=== PATIENT | female | born 1965 | race Two or more races ===

== ENCOUNTER 2016-06-27 20:15 | Emergency (ER) | payer MEDICAID ==
[~2016-06-27] VITALS: Ht 165.1 cm; Wt 81.2 kg
[2016-06-27] MEDS ORDERED: Famotidine 20 MG/ 2ML VIAL IVP ONE (20:45)
[2016-06-27 21:10] LABS: BASOPHILS % (AUTO) 2.1 % (0.0-2.0); EOSINOPHILS % (AUTO) 2.4 % (0.0-3.0); LYMPHOCYTES % (AUTO) 31.6 % (20.0-45.0); MEAN CORPUSCULAR HEMOGLOBIN 31.7 PG (27.0-31.0); MEAN CORPUSCULAR HGB CONC 34.2 G/DL (32.0-36.0); MEAN CORPUSCULAR VOLUME 92 FL (80-99); MEAN PLATELET VOLUME 8.1 FL (6.5-10.1); MONOCYTES % (AUTO) 13.2 % (1.0-10.0); NEUTROPHILS % (AUTO) 50.7 % (45.0-75.0); PLATELET COUNT 288 K/UL (150-450); RED BLOOD COUNT 4.22 M/UL (4.20-5.40); RED CELL DISTRIBUTION WIDTH 12.5 % (11.6-14.8); WHITE BLOOD COUNT 6.6 K/UL (4.8-10.8)
[2016-06-27 21:11] LABS: APPEARANCE,URINE CLEAR; KETONES,URINE NEGATIVE (NEGATIVE); LEUKOCYTE ESTERASE ,URINE 1+ (NEGATIVE); NITRITE,URINE NEGATIVE (NEGATIVE); PH,URINE 5 (4.5-8.0); PROTEIN,URINE 1+ (NEGATIVE); UROBILINOGEN,URINE 1 MG/DL (0.0-1.0)
[2016-06-27 21:20] LABS: BACTERIA,URINE OCCASIONAL /HPF; RBC,URINE 0-2 /HPF (0 - 2); SQUAMOUS EPITHELIAL CELL,UR OCCASIONAL /LPF (NONE/OCC); WBC,URINE 0-2 /HPF (0 - 2)
[2016-06-27 21:21] VITALS: BP 136/85
[2016-06-27 21:21] LABS: CALCIUM OXALATE CRYSTALS,UR MODERATE /LPF
[2016-06-27 21:29] LABS: ALANINE AMINOTRANSFERASE 26 U/L (3-33); ALBUMIN/GLOBULIN RATIO 1.1 (1.0-2.7); ANION GAP 15 (5-15); ASPARTATE AMINO TRANSFERASE 32 U/L (5-40); CALCIUM 8.9 mg/dL (8.6-10.2); CARBON DIOXIDE 23 mEQ/L (20-30); CHLORIDE 103 mEQ/L (98-107); CREATININE 0.6 mg/dL (0.5-0.9); GLOMERULAR FILTRATION RATE > 60 mL/min (>60); HEMOLYSIS 3; LIPASE 21 U/L (< 60); POTASSIUM 3.4 mEQ/L (3.4-4.9); SODIUM 141 mEQ/L (135-145); TOTAL PROTEIN 7.2 g/dL (6.6-8.7)
[2016-06-27] MEDS ORDERED: ZOFRAN4 M3 ORAL (21:36)
[2016-06-27 22:05] VITALS: BP 130/78
[2016-06-27 22:15] VITALS: BP 130/78
--- NOTE | 2016-06-27 22:24 | Emergency Room Report ---
History of Present Illness General Chief Complaint: Abdominal Pain Source: Patient Present Illness HPI The pt is a 51 yo F who denies any medical Hx presenting for abdominal pain, N, V, and diarrhea which began 2 days prior. The pt states she ate something questionable at work 3 days prior but is unsure what it was. The pt describes abd pain as 9/10 upper mid dull ache and is worse with vomiting. The pt has had decreased appetite since the symptoms began. The pt denies F, chills, rash, MARTINEZ, dizziness, blurred vision, fatigue, melena, hematochezia, hematemesis, SOB, CP. Pt denies recent travel. Allergies: Coded Allergies: No Known Allergies (Unverified , 06/27/16) Patient History Past Medical History: see triage record Past Surgical History: none Pertinent Family History: none Last Menstrual Period: 06/21/16 Now: Yes : 2 Para: 2 Reviewed Nursing Documentation: PMH: Agreed, PSxH: Agreed Nursing Documentation-PMH Past Medical History: No Stated History Review of Systems All Other Systems: negative except mentioned in HPI Physical Exam Vital Signs Date Time Temp Pulse Resp B/P Pulse Ox O2 Delivery O2 Flow Rate FiO2 06/27/16 20:22 98.1 92 18 134/92 98 Room Air Sp02 EP Interpretation: reviewed, normal General Appearance: no apparent distress, alert, GCS 15, non-toxic Head: normocephalic, atraumatic Eyes: bilateral eye PERRL, bilateral eye normal inspection ENT: hearing grossly normal, normal pharynx, no angioedema, normal voice Neck: full range of motion, supple/symm/no masses Respiratory: chest non-tender, lungs clear, normal breath sounds, speaking full sentences Cardiovascular #1: regular rate, rhythm, no edema Cardiovascular #2: 2+ carotid (R), 2+ carotid (L), 2+ radial (R), 2+ radial (L) , 2+ dorsalis pedis (R), 2+ dorsalis pedis (L) Gastrointestinal: soft, non-distended, no guarding, no rebound, tenderness - epigastric, other - hyperactive BS Rectal: deferred Genitourinary: normal inspection, no CVA tenderness Musculoskeletal: back normal, gait/station normal, normal range of motion, non- tender Neurologic: alert, oriented x3, responsive, motor strength/tone normal, sensory intact, speech normal Psychiatric: judgement/insight normal, memory normal, mood/affect normal, no suicidal/homicidal ideation Reflexes: 3+ bicep (R), 3+ bicep (L), 3+ tricep (R), 3+ tricep (L), 3+ knee (R) , 3+ knee (L) Skin: normal color, no rash, warm/dry, well hydrated Lymphatic: no adenopathy Medical Decision Making PA Attestation Dr. John is my supervising physician. Patient management was discussed with my supervising physician Diagnostic Impression: Primary Impression: Gastroenteritis ER Course The pt is a 51 yo F who denies any medical Hx presenting for abdominal pain, N, V, and diarrhea which began 2 days prior. Differential diagnoses considered include but not limited to gastritis, pancreatitis, appendicitis, , UTI PE: Vitals WNL. NAD. Abd: soft. TTP over epigastric region only. No guarding. Hyperactive BS. No distention. Otherwise exam unremarkable. cbc shows no leukocytosis. CMP WNL. UA shows no infection. The pt is given IV fluids, Zofran, and Pepcid and is feeling better. Pt will be DC home with prescription for zofran. ER precautions given Laboratory Tests Test 06/27/16 20:45 White Blood Count 6.6 K/UL (4.8-10.8) Red Blood Count 4.22 M/UL (4.20-5.40) Hemoglobin 13.3 G/DL (12.0-16.0) Hematocrit 39.0 % (37.0-47.0) Mean Corpuscular Volume 92 FL (80-99) Mean Corpuscular Hemoglobin 31.7 PG (27.0-31.0) H Mean Corpuscular Hemoglobin Concent 34.2 G/DL (32.0-36.0) Red Cell Distribution Width 12.5 % (11.6-14.8) Platelet Count 288 K/UL (150-450) Mean Platelet Volume 8.1 FL (6.5-10.1) Neutrophils (%) (Auto) 50.7 % (45.0-75.0) Lymphocytes (%) (Auto) 31.6 % (20.0-45.0) Monocytes (%) (Auto) 13.2 % (1.0-10.0) H Eosinophils (%) (Auto) 2.4 % (0.0-3.0) Basophils (%) (Auto) 2.1 % (0.0-2.0) H Urine Color Yellow Urine Appearance Clear Urine pH 5 (4.5-8.0) Urine Specific [place] 1.030 (1.005-1.035) Urine Protein 1+ (NEGATIVE) H Urine Glucose (UA) Negative (NEGATIVE) Urine Ketones Negative (NEGATIVE) Urine Occult Blood 2+ (NEGATIVE) H Urine Nitrite Negative (NEGATIVE) Urine Bilirubin Negative (NEGATIVE) Urine Urobilinogen 1 MG/DL (0.0-1.0) H Urine Leukocyte Esterase 1+ (NEGATIVE) H Urine RBC 0-2 /HPF (0 - 2) Urine WBC 0-2 /HPF (0 - 2) Urine Squamous Epithelial Cells Occasional /LPF Urine Calcium Oxalate Crystals Moderate /LPF (NONE) Urine Bacteria Occasional /HPF (NONE) Urine HCG, Qualitative Negative Sodium Level 141 mEQ/L (135-145) Potassium Level 3.4 mEQ/L (3.4-4.9) Chloride Level 103 mEQ/L (98-107) Carbon Dioxide Level 23 mEQ/L (20-30) Anion Gap 15 (5-15) Blood Urea Nitrogen 12 mg/dL (7-23) Creatinine 0.6 mg/dL (0.5-0.9) Estimate Glomerular Filtration Rate > 60 mL/min (>60) Glucose Level 112 mg/dL (74-106) H Calcium Level 8.9 mg/dL (8.6-10.2) Total Bilirubin 0.3 mg/dL (0.0-1.2) Aspartate Amino Transferase (AST) 32 U/L (5-40) Alanine Aminotransferase (ALT) 26 U/L (3-33) Alkaline Phosphatase 79 U/L (35-104) Total Protein 7.2 g/dL (6.6-8.7) Albumin 3.8 g/dL (3.5-5.2) Globulin 3.4 g/dL Albumin/Globulin Ratio 1.1 (1.0-2.7) Lipase 21 U/L (< 60) Lab Results Impression cbc shows no leukocytosis. CMP WNL. UA shows no infection. Last Vital Signs Date Time Temp Pulse Resp B/P Pulse Ox O2 Delivery O2 Flow Rate FiO2 06/27/16 22:15 97.9 74 16 130/78 100 Room Air Status: improved Disposition: HOME, SELF-CARE Condition: Improved Scripts Ondansetron* (ZOFRAN*) 4 Mg Tablet 4 MG ORAL Q6H Y for Nausea & Vomiting, #15 TAB Prov: CHRISTELLE RODRIGUEZ 06/27/16 Patient Instructions: Diarrhea, Adult, Food Choices to Help Relieve Diarrhea, Adult Additional Instructions: I discussed my findings with the patient. All questions and concerns have been answered. Treatment and medication compliance have been addressed. I advised the patient that they need to follow up with PMD in 3-5 days. Return to ED if symptoms worsen, new symptoms arise, or if needed for any reason. Patient verbalized understanding of discharge instructions. CHRISTELLE RODRIGUEZ Jun 27, 2016 22:24
== END 2016-06-27 22:15 | disposition home or self-care (01) ==
LOC: EMR 21:07
DX: K52.9 Noninfective gastroenteritis and colitis, unspecified (principal)
CPT/HCPCS: 36415; 80053; 81003; 81025; 83690; 85025; 96361; 96374; 96375; 99284; J2405; S0028

== ENCOUNTER 2017-04-28 09:47 | Inpatient (IN) | payer MEDICAID ==
[~2017-04-28] VITALS: Ht 162.6 cm; Wt 77.1 kg
[~2017-04-28 09:47] MED LIST: ZOFRAN4 M3 ORAL
[2017-04-28] MEDS ORDERED: Morphine Sulfate 4mg/ml Inj IVP ONE (10:00)
[2017-04-28 10:05] VITALS: BP 163/87
--- NOTE | 2017-04-28 10:06 | Emergency Room Report ---
History of Present Illness General Chief Complaint: abdominal pain Source: Patient Present Illness HPI Patient is a 52-year-old female who presented after increased abdominal pain. Patient gradual onset of symptoms. This reports an increase pain to the left side of her abdomen. The pain was associated with nausea and vomiting. She denied any hematemesis. The patient reported having pain worse with ambulation. She denies any prior medical history. She had prior history of appendectomy. She denies any fever. The patient vomited multiple times. She denies diarrhea or bloody stool. Allergies: Coded Allergies: No Known Allergies (Unverified , 06/27/16) Patient History Past Medical History: see triage record Reviewed Nursing Documentation: PMH: Agreed, PSxH: Agreed Review of Systems All Other Systems: negative except mentioned in HPI Physical Exam Sp02 EP Interpretation: reviewed, normal General Appearance: normal inspection, no apparent distress, alert, GCS 15, mild distress, obese Head: atraumatic ENT: normal ENT inspection, hearing grossly normal, normal voice Neck: normal inspection, full range of motion, supple, no bony tend Respiratory: normal inspection, lungs clear, normal breath sounds, no respiratory distress, no retraction, no wheezing Cardiovascular #1: regular rate, rhythm, no edema Gastrointestinal: normal inspection, normal bowel sounds, soft, no guarding, no hernia, tenderness - left lower quadrant Genitourinary: no CVA tenderness Musculoskeletal: normal inspection, back normal, normal range of motion Neurologic: normal inspection, alert, oriented x3, responsive, traffic rate computer III-XII nml as tested, speech normal Psychiatric: normal inspection, judgement/insight normal, mood/affect normal Skin: normal inspection, normal color, no rash Medical Decision Making Diagnostic Impression: Primary Impression: Ureteral calculus, left Additional Impressions: Hydronephrosis Urinary tract infection ER Course Patient presented for abdominal pain. Differential diagnoses included ischemic bowel, appendicitis, perforated viscus, ovarian torsion,abdominal aortic aneurysm, inferior myocardial infarction, viral gastroenteritis. Because of complexity of patient's case laboratory testing and imaging studies were ordered.Patient was given IV antibiotics and she was discussed with Dr. Ewa Monsalve for urology consult. Dr. Jang was contacted for inpatient management due to complexity of medical condition and capitated physician. Labs Test 04/28/17 10:25 White Blood Count 15.8 K/UL (4.8-10.8) Red Blood Count 4.35 M/UL (4.20-5.40) Hemoglobin 12.8 G/DL (12.0-16.0) Hematocrit 41.8 % (37.0-47.0) Mean Corpuscular Volume 96 FL (80-99) Mean Corpuscular Hemoglobin 29.5 PG (27.0-31.0) Mean Corpuscular Hemoglobin Concent 30.7 G/DL (32.0-36.0) Red Cell Distribution Width 12.9 % (11.6-14.8) Platelet Count 293 K/UL (150-450) Mean Platelet Volume 7.7 FL (6.5-10.1) Neutrophils (%) (Auto) % (45.0-75.0) Lymphocytes (%) (Auto) % (20.0-45.0) Monocytes (%) (Auto) % (1.0-10.0) Eosinophils (%) (Auto) % (0.0-3.0) Basophils (%) (Auto) % (0.0-2.0) Differential Total Cells Counted 100 Neutrophils % (Manual) 87 % (45-75) Lymphocytes % (Manual) 5 % (20-45) Monocytes % (Manual) 7 % (1-10) Eosinophils % (Manual) 1 % (0-3) Basophils % (Manual) 0 % (0-2) Band Neutrophils 0 % (0-8) Platelet Estimate Adequate Platelet Morphology Normal Red Blood Cell Morphology Normal Prothrombin Time 10.2 SEC (9.30-11.50) Prothromb Time International Ratio 1.0 (0.9-1.1) Activated Partial Thromboplast Time 23 SEC (23-33) Urine Color Pale yellow Urine Appearance Clear Urine pH 5 (4.5-8.0) Urine Specific [place] 1.020 (1.005-1.035) Urine Protein 1+ (NEGATIVE) Urine Glucose (UA) 2+ (NEGATIVE) Urine Ketones 4+ (NEGATIVE) Urine Occult Blood 3+ (NEGATIVE) Urine Nitrite Negative (NEGATIVE) Urine Bilirubin Negative (NEGATIVE) Urine Urobilinogen Normal MG/DL (0.0-1.0) Urine Leukocyte Esterase Negative (NEGATIVE) Urine RBC 5-10 /HPF (0 - 2) Urine WBC 0-2 /HPF (0 - 2) Urine Squamous Epithelial Cells Moderate /LPF (NONE/OCC) Urine Bacteria Few /HPF (NONE) Sodium Level 140 MMOL/L (136-145) Potassium Level 3.7 MMOL/L (3.5-5.1) Chloride Level 103 MMOL/L (98-107) Carbon Dioxide Level 19 MMOL/L (21-32) Anion Gap 18 mmol/L (5-15) Blood Urea Nitrogen 11 mg/dL (7-18) Creatinine 1.0 MG/DL (0.55-1.30) Estimat Glomerular Filtration Rate 58.7 mL/min (>60) Glucose Level 178 MG/DL (74-106) Calcium Level 9.5 MG/DL (8.5-10.1) Total Bilirubin 0.5 MG/DL (0.2-1.0) Aspartate Amino Transf (AST/SGOT) 28 U/L (15-37) Alanine Aminotransferase (ALT/SGPT) 28 U/L (12-78) Alkaline Phosphatase 80 U/L (46-116) Troponin I < 0.017 ng/mL (0.000-0.056) Total Protein 7.8 G/DL (6.4-8.2) Albumin 3.5 G/DL (3.4-5.0) Globulin 4.3 g/dL Albumin/Globulin Ratio 0.8 (1.0-2.7) Lipase 79 U/L (73-393) Status: unchanged Disposition: ADMITTED INPATIENT Condition: Dudley Puentes Apr 28, 2017 10:06
[2017-04-28] MEDS ORDERED: NKM (10:10)
[2017-04-28] MEDS ORDERED: Tubing IV Cassette IV ONE (10:23)
[2017-04-28 11:14] LABS: MEAN CORPUSCULAR HEMOGLOBIN 29.5 PG (27.0-31.0); MEAN CORPUSCULAR HGB CONC 30.7 G/DL (32.0-36.0); MEAN CORPUSCULAR VOLUME 96 FL (80-99); MEAN PLATELET VOLUME 7.7 FL (6.5-10.1); PLATELET COUNT 293 K/UL (150-450); RED BLOOD COUNT 4.35 M/UL (4.20-5.40); RED CELL DISTRIBUTION WIDTH 12.9 % (11.6-14.8); WHITE BLOOD COUNT 15.8 K/UL (4.8-10.8)
[2017-04-28 11:15] LABS: APPEARANCE,URINE CLEAR; KETONES,URINE 4+ (NEGATIVE); LEUKOCYTE ESTERASE ,URINE NEGATIVE (NEGATIVE); NITRITE,URINE NEGATIVE (NEGATIVE); PH,URINE 5 (4.5-8.0); PROTEIN,URINE 1+ (NEGATIVE); UROBILINOGEN,URINE NORMAL MG/DL (0.0-1.0)
[2017-04-28 11:28] LABS: ANION GAP 18 mmol/L (5-15); CALCIUM 9.5 MG/DL (8.5-10.1); CARBON DIOXIDE 19 MMOL/L (21-32); CHLORIDE 103 MMOL/L (98-107); GLOMERULAR FILTRATION RATE 58.7 mL/min (>60); POTASSIUM 3.7 MMOL/L (3.5-5.1); SODIUM 140 MMOL/L (136-145)
[2017-04-28 11:29] LABS: BACTERIA,URINE FEW /HPF; PROTHROMBIN TIME 10.2 SEC (9.30-11.50); SQUAMOUS EPITHELIAL CELL,UR MODERATE /LPF (NONE/OCC); WBC,URINE 0-2 /HPF (0 - 2)
[2017-04-28] MEDS ORDERED: Morphine Sulfate 2mg/ml Inj IVP ONE (11:30)
[2017-04-28 11:33] LABS: ALANINE AMINOTRANSFERASE 28 U/L (12-78); ALBUMIN/GLOBULIN RATIO 0.8 (1.0-2.7); ASPARTATE AMINO TRANSFERASE 28 U/L (15-37); LIPASE 79 U/L (73-393); TOTAL PROTEIN 7.8 G/DL (6.4-8.2)
[2017-04-28 11:53] LABS: BAND NEUTROPHILS % (MANUAL) 0 % (0-8); BASOPHILS % (MANUAL) 0 % (0-2); EOSINOPHILS % (MANUAL) 1 % (0-3); LYMPHOCYTES % (MANUAL) 5 % (20-45); NEUTROPHILS % (MANUAL) 87 % (45-75); PLATELET ESTIMATE ADEQUATE; PLATELET MORPHOLOGY NORMAL; TOTAL CELLS COUNTED 100
--- NOTE | 2017-04-28 12:03 | Diagnostic Imaging Report ---
Indication: Abdominal pain Technique: Continuous helical transaxial imaging of the abdomen and pelvis was obtained from the lung bases to the pubic symphysis during intravenous contrast administration. Coronal 2-D reformats were also obtained. Study obtained in a Siemens sensation [address] Automatic Exposure Control was utilized. Total Dose length Product (DLP): [address] Dose Index Volume (CTDIvol): 0.15, 19.51 mGy Comparison: None Findings: Minimal basilar atelectasis demonstrated. There is moderate left hydronephrosis/hydroureter with perinephric and periureteral stranding secondary to 8 mm stone in the left UVJ. Delayed enhancement of the left kidney noted due to the obstruction. No additional stones are identified. No abnormalities of the liver, gallbladder, pancreas or spleen identified. Probable appendectomy noted. No free fluid identified. Uterus noted. Urinary bladder is unremarkable. Impression: Moderate left hydronephrosis and obstruction secondary to a 8 [address] The [address] scanner at [facility] is accredited by the [employer] and the scans are performed using dose optimization techniques as appropriate to a performed exam including Automatic Exposure control.
[2017-04-28] MEDS ORDERED: Piperacillin/Tazobactam 3.375 GM in NS 55 ML IVPB ONE (12:45)
[2017-04-28] MEDS ORDERED: Zosyn 3.375gm inj ONE (13:03)
[2017-04-28 14:00] VITALS: BP 130/79
[2017-04-28 15:26] VITALS: BP 116/70
[2017-04-28 16:30] VITALS: BP 127/68
[2017-04-28] MEDS ORDERED: Morphine Sulfate 2mg/ml Inj IV PRN (17:15)
[2017-04-28] MEDS ORDERED: Nitroglycerin Subl 0.4mg tab SL PRN (17:15)
[2017-04-28] MEDS ORDERED: Morphine Sulfate 2mg/ml Inj IVP PRN (17:15)
[2017-04-28] MEDS ORDERED: Mylanta II UD 30ml ORAL PRN (17:15)
[2017-04-28] MEDS ORDERED: Miralax 17gm pkt ORAL PRN (17:15)
[2017-04-28] MEDS: D5 1/2NS 1,000 ML IV SCH (18:37)
[2017-04-28 20:00] VITALS: BP 118/68
[2017-04-28] MEDS ORDERED: cefTRIAXone 1 GM in D5W 55 ML IVPB SCH (20:00)
[2017-04-28] MEDS: Heparin 5000 units/ml inj SUBQ SCH (20:51)
[2017-04-28 22:57] LABS: APPEARANCE,URINE CLEAR; KETONES,URINE 1+ (NEGATIVE); LEUKOCYTE ESTERASE ,URINE NEGATIVE (NEGATIVE); NITRITE,URINE NEGATIVE (NEGATIVE); PH,URINE 6 (4.5-8.0); PROTEIN,URINE NEGATIVE (NEGATIVE); UROBILINOGEN,URINE NORMAL MG/DL (0.0-1.0)
[2017-04-28 23:06] LABS: BACTERIA,URINE OCCASIONAL /HPF; SQUAMOUS EPITHELIAL CELL,UR OCCASIONAL /LPF (NONE/OCC); WBC,URINE 0-2 /HPF (0 - 2)
[2017-04-29] VITALS (13 sets, daily range): BP systolic 114–151; BP diastolic 64–98
[2017-04-29 04:57] LABS: EOSINOPHILS % (AUTO) 1.4 % (0.0-3.0); LYMPHOCYTES % (AUTO) 22.6 % (20.0-45.0); MEAN CORPUSCULAR HEMOGLOBIN 31.7 PG (27.0-31.0); MEAN CORPUSCULAR HGB CONC 33.4 G/DL (32.0-36.0); MEAN CORPUSCULAR VOLUME 95 FL (80-99); MEAN PLATELET VOLUME 8.3 FL (6.5-10.1); MONOCYTES % (AUTO) 8.2 % (1.0-10.0); NEUTROPHILS % (AUTO) 66.7 % (45.0-75.0); PLATELET COUNT 289 K/UL (150-450); RED BLOOD COUNT 3.64 M/UL (4.20-5.40); WHITE BLOOD COUNT 11.6 K/UL (4.8-10.8)
[2017-04-29 05:40] LABS: ALANINE AMINOTRANSFERASE 21 U/L (12-78); ALBUMIN/GLOBULIN RATIO 0.8 (1.0-2.7); AMYLASE 68 U/L (25-115); ANION GAP 8 mmol/L (5-15); ASPARTATE AMINO TRANSFERASE 20 U/L (15-37); CALCIUM 8.9 MG/DL (8.5-10.1); CARBON DIOXIDE 26 MMOL/L (21-32); CHLORIDE 106 MMOL/L (98-107); CREATININE 0.8 MG/DL (0.55-1.30); GLOMERULAR FILTRATION RATE > 60 mL/min (>60); LIPASE 72 U/L (73-393); POTASSIUM 3.7 MMOL/L (3.5-5.1); SODIUM 140 MMOL/L (136-145); TOTAL PROTEIN 6.5 G/DL (6.4-8.2)
[2017-04-29] MEDS: D5 1/2NS 1,000 ML IV SCH ×2 (06:59→17:22)
[2017-04-29] MEDS: Heparin 5000 units/ml inj SUBQ SCH ×2 (09:00→20:10)
--- NOTE | 2017-04-29 09:47 | History and Physical ---
History of Present Illness General Date patient seen: Apr 28, 2017 Reason for Hospitalization: Abdominal Pain Present Illness HPI 52-year-old female who presented after increased abdominal pain with gradual onset of symptoms. This reports an increase pain to the left side of her abdomen with nausea and vomiting. She was diagnosed to have 8 mm ureteral stone with hydronephrosis. Admitted for possible ureteral stent placement. Allergies: Coded Allergies: No Known Allergies (Unverified , 06/27/16) Medication History Discontinued Medications Ondansetron* (Zofran*), 4 MG ORAL Q6H PRN for Nausea & Vomiting Discontinued Reason: Pt stopped taking med Patient History Healthcare decision maker Resuscitation status Full Code Advanced Directive on File Past Medical/Surgical History Past Medical/Surgical History: (1) Hydronephrosis (2) Gastroenteritis Review of Systems Constitutional: Reports: malaise Gastrointestinal: Reports: abdominal pain All Other Systems: negative except mentioned in HPI Physical Exam General Appearance: WD/WN Lines, tubes and drains: peripheral HEENT: normocephalic, atraumatic Neck: non-tender, normal inspection Respiratory/Chest: chest wall non-tender, lungs clear Cardiovascular/Chest: normal rate, regularly irregular Abdomen: normal bowel sounds, soft Genitourinary/Rectal: normal genital exam Last 24 Hour Vital Signs Date Time Temp Pulse Resp B/P (MAP) Pulse Ox O2 Delivery O2 Flow Rate FiO2 04/29/17 08:00 97.5 74 21 138/98 99 Room Air 04/29/17 08:00 74 04/29/17 04:00 97.3 82 18 130/83 99 Room Air 04/29/17 04:00 76 04/29/17 00:00 97.2 83 20 116/72 99 Room Air 04/29/17 00:00 88 04/28/17 20:00 87 04/28/17 20:00 97.2 99 18 118/68 97 Room Air 04/28/17 16:30 98.1 81 20 127/68 98 Room Air 04/28/17 16:05 97 20 116/70 100 Room Air 04/28/17 15:26 97 20 116/70 100 Room Air 04/28/17 14:00 75 17 130/79 100 Room Air 04/28/17 12:00 98.1 04/28/17 11:00 98.1 04/28/17 11:00 98.1 04/28/17 10:05 77 20 163/87 95 Room Air 04/28/17 10:05 77 20 163/87 95 Room Air Laboratory Tests Test 04/28/17 10:25 04/28/17 21:45 04/29/17 04:10 White Blood Count 15.8 K/UL (4.8-10.8) H 11.6 K/UL (4.8-10.8) H Red Blood Count 4.35 M/UL (4.20-5.40) 3.64 M/UL (4.20-5.40) L Hemoglobin 12.8 G/DL (12.0-16.0) 11.6 G/DL (12.0-16.0) L Hematocrit 41.8 % (37.0-47.0) 34.6 % (37.0-47.0) L Mean Corpuscular Volume 96 FL (80-99) 95 FL (80-99) Mean Corpuscular Hemoglobin 29.5 PG (27.0-31.0) 31.7 PG (27.0-31.0) H Mean Corpuscular Hemoglobin Concent 30.7 G/DL (32.0-36.0) L 33.4 G/DL (32.0-36.0) Red Cell Distribution Width 12.9 % (11.6-14.8) 13.0 % (11.6-14.8) Platelet Count 293 K/UL (150-450) 289 K/UL (150-450) Mean Platelet Volume 7.7 FL (6.5-10.1) 8.3 FL (6.5-10.1) Neutrophils (%) (Auto) % (45.0-75.0) 66.7 % (45.0-75.0) Lymphocytes (%) (Auto) % (20.0-45.0) 22.6 % (20.0-45.0) Monocytes (%) (Auto) % (1.0-10.0) 8.2 % (1.0-10.0) Eosinophils (%) (Auto) % (0.0-3.0) 1.4 % (0.0-3.0) Basophils (%) (Auto) % (0.0-2.0) 1.0 % (0.0-2.0) Differential Total Cells Counted 100 Neutrophils % (Manual) 87 % (45-75) H Lymphocytes % (Manual) 5 % (20-45) L Monocytes % (Manual) 7 % (1-10) Eosinophils % (Manual) 1 % (0-3) Basophils % (Manual) 0 % (0-2) Band Neutrophils 0 % (0-8) Platelet Estimate Adequate Platelet Morphology Normal Red Blood Cell Morphology Normal Prothrombin Time 10.2 SEC (9.30-11.50) Prothromb Time International Ratio 1.0 (0.9-1.1) Activated Partial Thromboplast Time 23 SEC (23-33) 27 SEC (23-33) Urine Color Pale yellow Pale yellow Urine Appearance Clear Clear Urine pH 5 (4.5-8.0) 6 (4.5-8.0) Urine Specific [place] 1.020 (1.005-1.035) 1.010 (1.005-1.035) Urine Protein 1+ (NEGATIVE) H Negative (NEGATIVE) Urine Glucose (UA) 2+ (NEGATIVE) H Negative (NEGATIVE) Urine Ketones 4+ (NEGATIVE) H 1+ (NEGATIVE) H Urine Occult Blood 3+ (NEGATIVE) H 2+ (NEGATIVE) H Urine Nitrite Negative (NEGATIVE) Negative (NEGATIVE) Urine Bilirubin Negative (NEGATIVE) Negative (NEGATIVE) Urine Urobilinogen Normal MG/DL (0.0-1.0) Normal MG/DL (0.0-1.0) Urine Leukocyte Esterase Negative (NEGATIVE) Negative (NEGATIVE) Urine RBC 5-10 /HPF (0 - 2) H 2-4 /HPF (0 - 2) H Urine WBC 0-2 /HPF (0 - 2) 0-2 /HPF (0 - 2) Urine Squamous Epithelial Cells Moderate /LPF (NONE/OCC) H Occasional /LPF Urine Bacteria Few /HPF (NONE) Occasional /HPF (NONE) Sodium Level 140 MMOL/L (136-145) 140 MMOL/L (136-145) Potassium Level 3.7 MMOL/L (3.5-5.1) 3.7 MMOL/L (3.5-5.1) Chloride Level 103 MMOL/L (98-107) 106 MMOL/L (98-107) Carbon Dioxide Level 19 MMOL/L (21-32) L 26 MMOL/L (21-32) Anion Gap 18 mmol/L (5-15) H 8 mmol/L (5-15) Blood Urea Nitrogen 11 mg/dL (7-18) 8 mg/dL (7-18) Creatinine 1.0 MG/DL (0.55-1.30) 0.8 MG/DL (0.55-1.30) Estimat Glomerular Filtration Rate 58.7 mL/min (>60) > 60 mL/min (>60) Glucose Level 178 MG/DL (74-106) H 134 MG/DL (74-106) H Calcium Level 9.5 MG/DL (8.5-10.1) 8.9 MG/DL (8.5-10.1) Total Bilirubin 0.5 MG/DL (0.2-1.0) 0.4 MG/DL (0.2-1.0) Aspartate Amino Transf (AST/SGOT) 28 U/L (15-37) 20 U/L (15-37) Alanine Aminotransferase (ALT/SGPT) 28 U/L (12-78) 21 U/L (12-78) Alkaline Phosphatase 80 U/L (46-116) 64 U/L (46-116) Troponin I < 0.017 ng/mL (0.000-0.056) Total Protein 7.8 G/DL (6.4-8.2) 6.5 G/DL (6.4-8.2) Albumin 3.5 G/DL (3.4-5.0) 2.9 G/DL (3.4-5.0) L Globulin 4.3 g/dL 3.6 g/dL Albumin/Globulin Ratio 0.8 (1.0-2.7) L 0.8 (1.0-2.7) L Lipase 79 U/L (73-393) 72 U/L (73-393) L Amylase Level 68 U/L (25-115) Height (Feet): 5 Height (Inches): 2.00 Weight (Pounds): 160 Medications Current Medications Medications (Trade) Dose Ordered Sig/Michael Route PRN Reason Start Time Stop Time Status Last Admin Dose Admin Acetaminophen (Tylenol) 650 mg Q4H PRN ORAL fever 04/28/17 17:15 05/28/17 17:14 Al Hydroxide/Mg Hydroxide (Mylanta II) 30 ml Q6H PRN ORAL dyspepsia 04/28/17 17:15 05/28/17 17:14 Ceftriaxone Sodium 1 gm/ Dextrose 55 ml @ 110 mls/hr Q24H IVPB 04/28/17 20:00 05/05/17 19:59 04/28/17 20:01 Dextrose (Dextrose 50%) STAT PRN IV Hypoglycemia 04/28/17 17:15 05/28/17 17:14 Dextrose/Sodium Chloride 1,000 ml @ 75 mls/hr [id number] IV 04/28/17 17:20 05/28/17 17:19 04/29/17 06:59 Diphenhydramine HCl (Benadryl) 25 mg Q6H PRN ORAL Itching/Pruritis 04/28/17 17:15 05/28/17 17:14 Heparin Sodium (Porcine) (Heparin 5000 units/ml) 5,000 units EVERY 12 HOURS SUBQ 04/28/17 21:00 05/28/17 20:59 Morphine Sulfate (Morphine Sulfate) 2 mg EVERY 4 HOURS PRN IVP severe Pain (Pain Scale 4-6) 04/28/17 17:15 05/05/17 17:14 Morphine Sulfate (Morphine Sulfate) 4 mg EVERY 2 HOURS PRN IV For Pain (7-10) 04/28/17 17:15 05/05/17 17:14 Nitroglycerin (Ntg) 0.4 mg Q5M X 3 DOSES PRN SL Prn Chest Pain 04/28/17 17:15 05/28/17 17:14 Ondansetron HCl (Zofran) 4 mg Q6H PRN IVP Nausea & Vomiting 04/28/17 17:15 05/28/17 17:14 Polyethylene Glycol (Miralax) 17 gm HSPRN PRN ORAL Constipation 04/28/17 17:15 05/28/17 17:14 Temazepam (Restoril) 15 mg HSPRN PRN ORAL Insomnia 04/28/17 17:15 05/05/17 17:14 Assessment/Plan Problem List: (1) Urinary tract infection ICD Codes: N39.0 - Urinary tract infection, site not specified SNOMED: 67078079 (2) Hydronephrosis ICD Codes: N13.30 - Unspecified hydronephrosis SNOMED: 68000993 (3) Ureteral calculus, left ICD Codes: N20.1 - Calculus of ureter SNOMED: 73107394 Assessment/Plan NPO IV abx check cultures Urology evaluation MARIS SALAZAR Apr 29, 2017 09:47
--- NOTE | 2017-04-29 09:48 | Pulmonology Progress Note ---
Assessment/Plan Problems: (1) Urinary tract infection (2) Hydronephrosis (3) Ureteral calculus, left Assessment/Plan for cystoscopy today Iv abx check cultures symptomatic treatment. Subjective ROS Limited/Unobtainable: No Constitutional: Reports: no symptoms HEENT: Repors: no symptoms Respiratory: Reports: no symptoms Allergies: Coded Allergies: No Known Allergies (Unverified , 06/27/16) Objective Last 24 Hour Vital Signs Date Time Temp Pulse Resp B/P (MAP) Pulse Ox O2 Delivery O2 Flow Rate FiO2 04/29/17 08:00 97.5 74 21 138/98 99 Room Air 04/29/17 08:00 74 04/29/17 04:00 97.3 82 18 130/83 99 Room Air 04/29/17 04:00 76 04/29/17 00:00 97.2 83 20 116/72 99 Room Air 04/29/17 00:00 88 04/28/17 20:00 87 04/28/17 20:00 97.2 99 18 118/68 97 Room Air 04/28/17 16:30 98.1 81 20 127/68 98 Room Air 04/28/17 16:05 97 20 116/70 100 Room Air 04/28/17 15:26 97 20 116/70 100 Room Air 04/28/17 14:00 75 17 130/79 100 Room Air 04/28/17 12:00 98.1 04/28/17 11:00 98.1 04/28/17 11:00 98.1 04/28/17 10:05 77 20 163/87 95 Room Air 04/28/17 10:05 77 20 163/87 95 Room Air General Appearance: WD/WN HEENT: normocephalic Respiratory/Chest: chest wall non-tender, normal breath sounds Breasts: no masses Cardiovascular: normal peripheral pulses, normal rate Abdomen: normal bowel sounds, soft, non tender, no organomegaly Genitourinary: normal external genitalia Skin: no rash 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 Laboratory Tests 04/28/17 10:25: White Blood Count 15.8H, Red Blood Count 4.35, Hemoglobin 12.8, Hematocrit 41.8 , Mean Corpuscular Volume 96, Mean Corpuscular Hemoglobin 29.5, Mean Corpuscular Hemoglobin Concent 30.7L, Red Cell Distribution Width 12.9, Platelet Count 293, Mean Platelet Volume 7.7, Neutrophils (%) (Auto) , Lymphocytes (%) (Auto) , Monocytes (%) (Auto) , Eosinophils (%) (Auto) , Basophils (%) (Auto) , Differential Total Cells Counted 100, Neutrophils % ( Manual) 87H, Lymphocytes % (Manual) 5L, Monocytes % (Manual) 7, Eosinophils % ( Manual) 1, Basophils % (Manual) 0, Band Neutrophils 0, Platelet Estimate Adequate, Platelet Morphology Normal, Red Blood Cell Morphology Normal, Prothrombin Time 10.2, Prothromb Time International Ratio 1.0, Activated Partial Thromboplast Time 23, Urine Color Pale yellow, Urine Appearance Clear, Urine pH 5, Urine Specific [place] 1.020, Urine Protein 1+H, Urine Glucose (UA) 2+H, Urine Ketones 4+H, Urine Occult Blood 3+H, Urine Nitrite Negative, Urine Bilirubin Negative, Urine Urobilinogen Normal, Urine Leukocyte Esterase Negative , Urine RBC 5-10H, Urine WBC 0-2, Urine Squamous Epithelial Cells ModerateH, Urine Bacteria Few, Sodium Level 140, Potassium Level 3.7, Chloride Level 103, Carbon Dioxide Level 19L, Anion Gap 18H, Blood Urea Nitrogen 11, Creatinine 1.0 , Estimat Glomerular Filtration Rate 58.7, Glucose Level 178H, Calcium Level 9.5 , Total Bilirubin 0.5, Aspartate Amino Transf (AST/SGOT) 28, Alanine Aminotransferase (ALT/SGPT) 28, Alkaline Phosphatase 80, Troponin I < 0.017, Total Protein 7.8, Albumin 3.5, Globulin 4.3, Albumin/Globulin Ratio 0.8L, Lipase 79 04/28/17 21:45: Urine Color Pale yellow, Urine Appearance Clear, Urine pH 6, Urine Specific [place] 1.010, Urine Protein Negative, Urine Glucose (UA) Negative, Urine Ketones 1+H, Urine Occult Blood 2+H, Urine Nitrite Negative, Urine Bilirubin Negative, Urine Urobilinogen Normal, Urine Leukocyte Esterase Negative, Urine RBC 2-4H, Urine WBC 0-2, Urine Squamous Epithelial Cells Occasional, Urine Bacteria Occasional 04/29/17 04:10: White Blood Count 11.6H, Red Blood Count 3.64L, Hemoglobin 11.6L, Hematocrit 34.6L, Mean Corpuscular Volume 95, Mean Corpuscular Hemoglobin 31.7H, Mean Corpuscular Hemoglobin Concent 33.4, Red Cell Distribution Width 13.0, Platelet Count 289, Mean Platelet Volume 8.3, Neutrophils (%) (Auto) 66.7, Lymphocytes (% ) (Auto) 22.6, Monocytes (%) (Auto) 8.2, Eosinophils (%) (Auto) 1.4, Basophils ( %) (Auto) 1.0, Activated Partial Thromboplast Time 27, Sodium Level 140, Potassium Level 3.7, Chloride Level 106, Carbon Dioxide Level 26, Anion Gap 8, Blood Urea Nitrogen 8, Creatinine 0.8, Estimat Glomerular Filtration Rate > 60, Glucose Level 134H, Calcium Level 8.9, Total Bilirubin 0.4, Aspartate Amino Transf (AST/SGOT) 20, Alanine Aminotransferase (ALT/SGPT) 21, Alkaline Phosphatase 64, Total Protein 6.5, Albumin 2.9L, Globulin 3.6, Albumin/Globulin Ratio 0.8L, Lipase 72L, Amylase Level 68 Current Medications Medications (Trade) Dose Ordered Sig/Michael Route PRN Reason Start Time Stop Time Status Last Admin Dose Admin Acetaminophen (Tylenol) 650 mg Q4H PRN ORAL fever 04/28/17 17:15 05/28/17 17:14 Al Hydroxide/Mg Hydroxide (Mylanta II) 30 ml Q6H PRN ORAL dyspepsia 04/28/17 17:15 05/28/17 17:14 Ceftriaxone Sodium 1 gm/ Dextrose 55 ml @ 110 mls/hr Q24H IVPB 04/28/17 20:00 05/05/17 19:59 04/28/17 20:01 Dextrose (Dextrose 50%) STAT PRN IV Hypoglycemia 04/28/17 17:15 05/28/17 17:14 Dextrose/Sodium Chloride 1,000 ml @ 75 mls/hr [id number] IV 04/28/17 17:20 05/28/17 17:19 04/29/17 06:59 Diphenhydramine HCl (Benadryl) 25 mg Q6H PRN ORAL Itching/Pruritis 04/28/17 17:15 05/28/17 17:14 Heparin Sodium (Porcine) (Heparin 5000 units/ml) 5,000 units EVERY 12 HOURS SUBQ 04/28/17 21:00 05/28/17 20:59 Morphine Sulfate (Morphine Sulfate) 2 mg EVERY 4 HOURS PRN IVP severe Pain (Pain Scale 4-6) 04/28/17 17:15 05/05/17 17:14 Morphine Sulfate (Morphine Sulfate) 4 mg EVERY 2 HOURS PRN IV For Pain (7-10) 04/28/17 17:15 05/05/17 17:14 Nitroglycerin (Ntg) 0.4 mg Q5M X 3 DOSES PRN SL Prn Chest Pain 04/28/17 17:15 05/28/17 17:14 Ondansetron HCl (Zofran) 4 mg Q6H PRN IVP Nausea & Vomiting 04/28/17 17:15 05/28/17 17:14 Polyethylene Glycol (Miralax) 17 gm HSPRN PRN ORAL Constipation 04/28/17 17:15 05/28/17 17:14 Temazepam (Restoril) 15 mg HSPRN PRN ORAL Insomnia 04/28/17 17:15 05/05/17 17:14 MARIS SALAZAR Apr 29, 2017 09:48
--- NOTE | 2017-04-29 11:17 | Consultation ---
History of Present Illness General Date patient seen: Apr 29, 2017 Time patient seen: 11:16 Chief Complaint: Abdominal Pain Present Illness HPI 52 y/o F with hx of appendectomy presents to ED on 04/28 with progressive Left side abdominal pain with associated N/V. Found to have 8mm ureteral stone with hydronephrosis and admitted for possible ureteral stent placement Denies hematemesis, fever, diarrhea, melena Patient afebrile, mild leukocytosis (improving). u/a no pyuria, mild hematuria. Started on IV Ceftriaxone Allergies: Coded Allergies: No Known Allergies (Unverified , 06/27/16) Medication History Discontinued Medications Ondansetron* (Zofran*), 4 MG ORAL Q6H PRN for Nausea & Vomiting Discontinued Reason: Pt stopped taking med Patient History Healthcare decision maker Resuscitation status Full Code Advanced Directive on File Patient History Narrative Pmhx: as above SH: reviewed Fhx: non contributory Review of Systems All Other Systems: negative except mentioned in HPI Physical Exam Physical Exam Narrative General Appearance: WD/WN Lines, tubes and drains: peripheral HEENT: normocephalic, atraumatic Neck: non-tender, normal inspection Respiratory/Chest: chest wall non-tender, lungs clear Cardiovascular/Chest: normal rate, regularly irregular Abdomen: normal bowel sounds, soft, L flank TTP SKIn: no rashes Last 24 Hour Vital Signs Date Time Temp Pulse Resp B/P (MAP) Pulse Ox O2 Delivery O2 Flow Rate FiO2 04/29/17 08:00 97.5 74 21 138/98 99 Room Air 04/29/17 08:00 74 04/29/17 04:00 97.3 82 18 130/83 99 Room Air 04/29/17 04:00 76 04/29/17 00:00 97.2 83 20 116/72 99 Room Air 04/29/17 00:00 88 04/28/17 20:00 87 04/28/17 20:00 97.2 99 18 118/68 97 Room Air 04/28/17 16:30 98.1 81 20 127/68 98 Room Air 04/28/17 16:05 97 20 116/70 100 Room Air 04/28/17 15:26 97 20 116/70 100 Room Air 04/28/17 14:00 75 17 130/79 100 Room Air 04/28/17 12:00 98.1 Intake and Output 04/29/17 04/30/17 19:00 07:00 Intake Total 300 ml Balance 300 ml IV Total 300 ml Laboratory Tests Test 04/28/17 21:45 04/29/17 04:10 Urine Color Pale yellow Urine Appearance Clear Urine pH 6 (4.5-8.0) Urine Specific [place] 1.010 (1.005-1.035) Urine Protein Negative (NEGATIVE) Urine Glucose (UA) Negative (NEGATIVE) Urine Ketones 1+ (NEGATIVE) H Urine Occult Blood 2+ (NEGATIVE) H Urine Nitrite Negative (NEGATIVE) Urine Bilirubin Negative (NEGATIVE) Urine Urobilinogen Normal MG/DL (0.0-1.0) Urine Leukocyte Esterase Negative (NEGATIVE) Urine RBC 2-4 /HPF (0 - 2) H Urine WBC 0-2 /HPF (0 - 2) Urine Squamous Epithelial Cells Occasional /LPF Urine Bacteria Occasional /HPF (NONE) White Blood Count 11.6 K/UL (4.8-10.8) H Red Blood Count 3.64 M/UL (4.20-5.40) L Hemoglobin 11.6 G/DL (12.0-16.0) L Hematocrit 34.6 % (37.0-47.0) L Mean Corpuscular Volume 95 FL (80-99) Mean Corpuscular Hemoglobin 31.7 PG (27.0-31.0) H Mean Corpuscular Hemoglobin Concent 33.4 G/DL (32.0-36.0) Red Cell Distribution Width 13.0 % (11.6-14.8) Platelet Count 289 K/UL (150-450) Mean Platelet Volume 8.3 FL (6.5-10.1) Neutrophils (%) (Auto) 66.7 % (45.0-75.0) Lymphocytes (%) (Auto) 22.6 % (20.0-45.0) Monocytes (%) (Auto) 8.2 % (1.0-10.0) Eosinophils (%) (Auto) 1.4 % (0.0-3.0) Basophils (%) (Auto) 1.0 % (0.0-2.0) Activated Partial Thromboplast Time 27 SEC (23-33) Sodium Level 140 MMOL/L (136-145) Potassium Level 3.7 MMOL/L (3.5-5.1) Chloride Level 106 MMOL/L (98-107) Carbon Dioxide Level 26 MMOL/L (21-32) Anion Gap 8 mmol/L (5-15) Blood Urea Nitrogen 8 mg/dL (7-18) Creatinine 0.8 MG/DL (0.55-1.30) Estimat Glomerular Filtration Rate > 60 mL/min (>60) Glucose Level 134 MG/DL (74-106) H Calcium Level 8.9 MG/DL (8.5-10.1) Total Bilirubin 0.4 MG/DL (0.2-1.0) Aspartate Amino Transf (AST/SGOT) 20 U/L (15-37) Alanine Aminotransferase (ALT/SGPT) 21 U/L (12-78) Alkaline Phosphatase 64 U/L (46-116) Total Protein 6.5 G/DL (6.4-8.2) Albumin 2.9 G/DL (3.4-5.0) L Globulin 3.6 g/dL Albumin/Globulin Ratio 0.8 (1.0-2.7) L Amylase Level 68 U/L (25-115) Lipase 72 U/L (73-393) L Height (Feet): 5 Height (Inches): 2.00 Weight (Pounds): 160 Medications Current Medications Medications (Trade) Dose Ordered Sig/Michael Route PRN Reason Start Time Stop Time Status Last Admin Dose Admin Acetaminophen (Tylenol) 650 mg Q4H PRN ORAL fever 04/28/17 17:15 05/28/17 17:14 Al Hydroxide/Mg Hydroxide (Mylanta II) 30 ml Q6H PRN ORAL dyspepsia 04/28/17 17:15 05/28/17 17:14 Ceftriaxone Sodium 1 gm/ Dextrose 55 ml @ 110 mls/hr Q24H IVPB 04/28/17 20:00 05/05/17 19:59 04/28/17 20:01 Dextrose (Dextrose 50%) STAT PRN IV Hypoglycemia 04/28/17 17:15 05/28/17 17:14 Dextrose/Sodium Chloride 1,000 ml @ 75 mls/hr [id number] IV 04/28/17 17:20 05/28/17 17:19 04/29/17 06:59 Diphenhydramine HCl (Benadryl) 25 mg Q6H PRN ORAL Itching/Pruritis 04/28/17 17:15 05/28/17 17:14 Heparin Sodium (Porcine) (Heparin 5000 units/ml) 5,000 units EVERY 12 HOURS SUBQ 04/28/17 21:00 05/28/17 20:59 Morphine Sulfate (Morphine Sulfate) 2 mg EVERY 4 HOURS PRN IVP severe Pain (Pain Scale 4-6) 04/28/17 17:15 05/05/17 17:14 Morphine Sulfate (Morphine Sulfate) 4 mg EVERY 2 HOURS PRN IV For Pain (7-10) 04/28/17 17:15 05/05/17 17:14 Nitroglycerin (Ntg) 0.4 mg Q5M X 3 DOSES PRN SL Prn Chest Pain 04/28/17 17:15 05/28/17 17:14 Ondansetron HCl (Zofran) 4 mg Q6H PRN IVP Nausea & Vomiting 04/28/17 17:15 05/28/17 17:14 Polyethylene Glycol (Miralax) 17 gm HSPRN PRN ORAL Constipation 04/28/17 17:15 05/28/17 17:14 Temazepam (Restoril) 15 mg HSPRN PRN ORAL Insomnia 04/28/17 17:15 05/05/17 17:14 Assessment/Plan Assessment/Plan Abx: Ceftriaxone 04/28- Zosyn x1 04/28 Assesment: Obstructive nephro/ureterolithiasis with L hydronephrosis- no evidence of UTI as u/a normal, afebrile -CT abd/p: Moderate left hydronephrosis and obstruction secondary to a 8 mm UVJ stone. -u/a no pyuria, mild hematuria Leukocytosis- likely reactive to above- improving Afebrile s/p appendectomy Plan: -Will continue Ceftriaxone today as agueda-op for cystoscopy- can d/c tomorrow as no evidence of UTI. -management of stone; uro following -f/u cx -Monitor CBC/BMP, temperatures Thank you for this consultation. Will continue to follow along with you. Discussed with Chaparrita Polanco M.D. Apr 29, 2017 11:17
[2017-04-29] MEDS ORDERED: Iothalamate Meglumine 60% 30ML INJ ONE (13:55)
[2017-04-29] MEDS ORDERED: fentaNYL 100 mcg/2 mL IV ONE (14:00)
[2017-04-29] MEDS ORDERED: Midazolam 2mg/2ml Inj ONE (14:00)
[2017-04-29] MEDS ORDERED: LR 1000ml ONE (14:00)
[2017-04-29] MEDS ORDERED: Sterile Water Irrig 1000ml IRRIG ONE (14:00)
[2017-04-29] MEDS ORDERED: Sterile Water For Irrig 2000ml IRRIG ONE ×2 (14:00→14:42)
[2017-04-29] MEDS ORDERED: Morphine Sulfate 2mg/ml Inj IV PRN (14:00)
[2017-04-29] MEDS ORDERED: NS Irrig 1000ml ONE (14:00)
[2017-04-29] MEDS ORDERED: Propofol 200mg/20ml IV ONE ×2 (14:02→14:34)
[2017-04-29] MEDS ORDERED: cefOXitin 1gm Inj ONE (14:03)
--- NOTE | 2017-04-29 14:12 | Pre-Procedure Note/Attestation ---
Pre-Procedure Note/Attestation Complete Prior to Procedure Planned Procedure: left Procedure Narrative: cysto, left ureteral stent Indications for Procedure Pre-Operative Diagnosis: left ureteral stone Attestation I attest that I discussed the nature of the procedure; its benefits; risks and complications; and alternatives (and the risks and benefits of such alternatives ), prior to the procedure, with the patient (or the patient's legal hardware supplies sales representative). I attest that, if there was a reasonable possibility of needing a blood transfusion, the patient (or the patient's legal hardware supplies sales representative) was given the [facility] standardized written summary, pursuant to the [employer] Blood Safety Act ([place] Health and Safety Code # 1645, as amended). I attest that I re-evaluated the patient just prior to the surgery and that there has been no change in the patient's H&P, except as documented below: Ashu Monsalve M.D. Apr 29, 2017 14:12
--- NOTE | 2017-04-29 14:15 | Consultation ---
History of Present Illness General Date patient seen: Apr 29, 2017 Time patient seen: 13:45 Chief Complaint: Abdominal Pain Referring physician: Sourav Reason for Consultation: Left ureteral stone Present Illness HPI 52 yo female with first episode of left renal colic. Noted fevers and pain before admission through ER. Currently patient's pain is under control but has not passed stone. Allergies: Coded Allergies: No Known Allergies (Unverified , 06/27/16) Medication History Discontinued Medications Ondansetron* (Zofran*), 4 MG ORAL Q6H PRN for Nausea & Vomiting Discontinued Reason: Pt stopped taking med Patient History History Provided By: Patient, Medical Record Healthcare decision maker Resuscitation status Full Code Advanced Directive on File Past Medical/Surgical History Past Medical/Surgical History: (1) Gastroenteritis Review of Systems All Other Systems: negative except mentioned in HPI Physical Exam General Appearance: no apparent distress, alert HEENT: atraumatic Neck: supple Cardiovascular/Chest: normal rate, regular rhythm Abdomen: non tender, soft Neurologic: alert, oriented x 3 Last 24 Hour Vital Signs Date Time Temp Pulse Resp B/P (MAP) Pulse Ox O2 Delivery O2 Flow Rate FiO2 04/29/17 12:00 63 04/29/17 12:00 98.7 61 22 114/64 100 Room Air 04/29/17 08:00 97.5 74 21 138/98 99 Room Air 04/29/17 08:00 74 04/29/17 04:00 97.3 82 18 130/83 99 Room Air 04/29/17 04:00 76 04/29/17 00:00 97.2 83 20 116/72 99 Room Air 04/29/17 00:00 88 04/28/17 20:00 87 04/28/17 20:00 97.2 99 18 118/68 97 Room Air 04/28/17 16:30 98.1 81 20 127/68 98 Room Air 04/28/17 16:05 97 20 116/70 100 Room Air 04/28/17 15:26 97 20 116/70 100 Room Air Intake and Output 04/29/17 04/30/17 19:00 07:00 Intake Total 375 ml Balance 375 ml IV Total 375 ml # Voids 1 Laboratory Tests Test 04/28/17 21:45 04/29/17 04:10 04/29/17 11:30 Urine Color Pale yellow Urine Appearance Clear Urine pH 6 (4.5-8.0) Urine Specific [place] 1.010 (1.005-1.035) Urine Protein Negative (NEGATIVE) Urine Glucose (UA) Negative (NEGATIVE) Urine Ketones 1+ (NEGATIVE) H Urine Occult Blood 2+ (NEGATIVE) H Urine Nitrite Negative (NEGATIVE) Urine Bilirubin Negative (NEGATIVE) Urine Urobilinogen Normal MG/DL (0.0-1.0) Urine Leukocyte Esterase Negative (NEGATIVE) Urine RBC 2-4 /HPF (0 - 2) H Urine WBC 0-2 /HPF (0 - 2) Urine Squamous Epithelial Cells Occasional /LPF Urine Bacteria Occasional /HPF (NONE) White Blood Count 11.6 K/UL (4.8-10.8) H Red Blood Count 3.64 M/UL (4.20-5.40) L Hemoglobin 11.6 G/DL (12.0-16.0) L Hematocrit 34.6 % (37.0-47.0) L Mean Corpuscular Volume 95 FL (80-99) Mean Corpuscular Hemoglobin 31.7 PG (27.0-31.0) H Mean Corpuscular Hemoglobin Concent 33.4 G/DL (32.0-36.0) Red Cell Distribution Width 13.0 % (11.6-14.8) Platelet Count 289 K/UL (150-450) Mean Platelet Volume 8.3 FL (6.5-10.1) Neutrophils (%) (Auto) 66.7 % (45.0-75.0) Lymphocytes (%) (Auto) 22.6 % (20.0-45.0) Monocytes (%) (Auto) 8.2 % (1.0-10.0) Eosinophils (%) (Auto) 1.4 % (0.0-3.0) Basophils (%) (Auto) 1.0 % (0.0-2.0) Activated Partial Thromboplast Time 27 SEC (23-33) Sodium Level 140 MMOL/L (136-145) Potassium Level 3.7 MMOL/L (3.5-5.1) Chloride Level 106 MMOL/L (98-107) Carbon Dioxide Level 26 MMOL/L (21-32) Anion Gap 8 mmol/L (5-15) Blood Urea Nitrogen 8 mg/dL (7-18) Creatinine 0.8 MG/DL (0.55-1.30) Estimat Glomerular Filtration Rate > 60 mL/min (>60) Glucose Level 134 MG/DL (74-106) H Calcium Level 8.9 MG/DL (8.5-10.1) Total Bilirubin 0.4 MG/DL (0.2-1.0) Aspartate Amino Transf (AST/SGOT) 20 U/L (15-37) Alanine Aminotransferase (ALT/SGPT) 21 U/L (12-78) Alkaline Phosphatase 64 U/L (46-116) Total Protein 6.5 G/DL (6.4-8.2) Albumin 2.9 G/DL (3.4-5.0) L Globulin 3.6 g/dL Albumin/Globulin Ratio 0.8 (1.0-2.7) L Amylase Level 68 U/L (25-115) Lipase 72 U/L (73-393) L Urine HCG, Qualitative Negative Height (Feet): 5 Height (Inches): 4.00 Weight (Pounds): 170 Medications Current Medications Medications (Trade) Dose Ordered Sig/Michael Route PRN Reason Start Time Stop Time Status Last Admin Dose Admin Acetaminophen (Tylenol) 650 mg Q4H PRN ORAL fever 04/29/17 17:15 05/28/17 17:14 UNV Al Hydroxide/Mg Hydroxide (Mylanta II) 30 ml Q6H PRN ORAL dyspepsia 04/29/17 17:15 05/28/17 17:14 UNV Ceftriaxone Sodium 1 gm/ Dextrose 55 ml @ 110 mls/hr Q24H IVPB 04/29/17 20:00 05/05/17 19:59 UNV Dextrose (Dextrose 50%) STAT PRN IV Hypoglycemia 04/29/17 17:15 05/28/17 17:14 UNV Dextrose/Sodium Chloride 1,000 ml @ 75 mls/hr [id number] IV 04/29/17 14:00 05/28/17 17:19 UNV Diphenhydramine HCl (Benadryl) 25 mg Q6H PRN ORAL Itching/Pruritis 04/29/17 17:15 05/28/17 17:14 UNV Heparin Sodium (Porcine) (Heparin 5000 units/ml) 5,000 units EVERY 12 HOURS SUBQ 04/29/17 21:00 05/28/17 20:59 UNV Morphine Sulfate (Morphine Sulfate) 2 mg EVERY 4 HOURS PRN IVP severe Pain (Pain Scale 4-6) 04/29/17 17:00 05/05/17 17:14 UNV Morphine Sulfate (Morphine Sulfate) 4 mg EVERY 2 HOURS PRN IV For Pain (7-10) 04/29/17 14:00 05/05/17 17:14 UNV Nitroglycerin (Ntg) 0.4 mg Q5M X 3 DOSES PRN SL Prn Chest Pain 04/29/17 14:00 05/28/17 17:14 UNV Ondansetron HCl (Zofran) 4 mg Q6H PRN IVP Nausea & Vomiting 04/29/17 17:15 05/28/17 17:14 UNV Polyethylene Glycol (Miralax) 17 gm HSPRN PRN ORAL Constipation 04/29/17 17:15 05/28/17 17:14 UNV Temazepam (Restoril) 15 mg HSPRN PRN ORAL Insomnia 04/29/17 17:15 05/05/17 17:[address]: left hydro, large distal ureteral stone, perinephric fluid collection Assessment/Plan Status: stable Assessment/Plan 52 yo female with possible infection and left ureteral stone. pain, fever. Given likelihood of infection, strongly favor stent placement and subsequent elective ureteroscopy and laser lithotripsy. 1. OR today for left ureteral stent 2. ok to discharge today or tomorrow with 10-14 days of abx. 3. plan for outpatient follow up and consideration of elective lithotripsy. Ashu Monsalve M.D. Apr 29, 2017 14:15
[2017-04-29] MEDS ORDERED: LR 1000ml 1,000 ML IVLG SCH (15:04)
--- NOTE | 2017-04-29 15:04 | Anethesia Preoperative Eval ---
Anesthesia Pre-op PMH/ROS General Date of Evaluation: Apr 29, 2017 Time of Evaluation: 14:10 Anesthesiologist: Carlos Enrique ASA Score: ASA 2 Mallampati Score Class I : Soft palate, uvula, fauces, pillars visible Class II: Soft palate, uvula, fauces visible Class III: Soft palate, base of uvula visible Class IV: Only hard plate visible Mallampati Classification: Class II Surgeon: Bello Diagnosis: L kidey stone Surgical Procedure: Cysto, retrgae pyelogram sent placement Anesthesia History: none Family History: no anesthesia problems Allergies: Coded Allergies: No Known Allergies (Unverified , 06/27/16) Medications: see eMAR Past Medical History Cardiovascular: Denies: HTN, CAD, [place], valve dz, arrhythmia, other Pulmonary: Denies: asthma, COPD, CATHIE, other Gastrointestinal/Genitourinary: Reports: GERD - mild, other - L sekou stone, Denies: CRI, ESRD Neurologic/Psychiatric: Denies: dementia, CVA, depression/anxiety, TIA, other Endocrine: Denies: DM, hypothyroidism, steroids, other Hematology/Immune: Denies: anemia, DVT, bleeding disorder, other Musculoskeletal/Integumentary: Denies: OA, RA, DJD, DDD, edema, other Other: other - overweight PMH Narrative: admitted with acute abdominal pain hydronephrosis PSxH Narrative: appendectomy Anesthesia Pre-op Phys. Exam Physician Exam Last Vital Signs Date Time Temp Pulse Resp B/P (MAP) Pulse Ox O2 Delivery O2 Flow Rate FiO2 04/29/17 12:00 63 04/29/17 12:00 98.7 22 114/64 100 Room Air Constitutional: NAD Neurologic: CN 2-12 intact Cardiovascular: RRR, no M/R/G Respiratory: CTA Gastrointestinal: S/NT/ND Airway Exam Mallampati Score: Class II MO: limited Neck: short ROM: full Teeth: missing Dentures: no upper, no lower Anesthesia Pre-op A/P Labs Hematology Test 04/29/17 04:10 White Blood Count 11.6 K/UL (4.8-10.8) H Red Blood Count 3.64 M/UL (4.20-5.40) L Hemoglobin 11.6 G/DL (12.0-16.0) L Hematocrit 34.6 % (37.0-47.0) L Mean Corpuscular Volume 95 FL (80-99) Mean Corpuscular Hemoglobin 31.7 PG (27.0-31.0) H Mean Corpuscular Hemoglobin Concent 33.4 G/DL (32.0-36.0) Red Cell Distribution Width 13.0 % (11.6-14.8) Platelet Count 289 K/UL (150-450) Mean Platelet Volume 8.3 FL (6.5-10.1) Neutrophils (%) (Auto) 66.7 % (45.0-75.0) Lymphocytes (%) (Auto) 22.6 % (20.0-45.0) Monocytes (%) (Auto) 8.2 % (1.0-10.0) Eosinophils (%) (Auto) 1.4 % (0.0-3.0) Basophils (%) (Auto) 1.0 % (0.0-2.0) Coagulation Test 04/29/17 04:10 Activated Partial Thromboplast Time 27 SEC (23-33) Chemistry Test 04/29/17 04:10 Sodium Level 140 MMOL/L (136-145) Potassium Level 3.7 MMOL/L (3.5-5.1) Chloride Level 106 MMOL/L (98-107) Carbon Dioxide Level 26 MMOL/L (21-32) Anion Gap 8 mmol/L (5-15) Blood Urea Nitrogen 8 mg/dL (7-18) Creatinine 0.8 MG/DL (0.55-1.30) Estimat Glomerular Filtration Rate > 60 mL/min (>60) Glucose Level 134 MG/DL (74-106) H Calcium Level 8.9 MG/DL (8.5-10.1) Total Bilirubin 0.4 MG/DL (0.2-1.0) Aspartate Amino Transf (AST/SGOT) 20 U/L (15-37) Alanine Aminotransferase (ALT/SGPT) 21 U/L (12-78) Alkaline Phosphatase 64 U/L (46-116) Total Protein 6.5 G/DL (6.4-8.2) Albumin 2.9 G/DL (3.4-5.0) L Globulin 3.6 g/dL Albumin/Globulin Ratio 0.8 (1.0-2.7) L Amylase Level 68 U/L (25-115) Lipase 72 U/L (73-393) L Urine Test Test 04/29/17 11:30 Urine HCG, Qualitative Negative Risk Assessment & Plan Assessment: ASA 2 Plan: GA with LMA Status Change Before Surgery: No Pre-Antibiotics Drug: Cefoxitin 1gr Given Within 1 Hr of Incision: Yes Time Given: 14:48 DANYELL ALCANTARA M.D. Apr 29, 2017 15:03
--- NOTE | 2017-04-29 15:12 | Brief Operative Note ---
Immediate Post Operative Note Operative Note Pre-op Diagnosis: left ureteral stone Procedure: cysto, left RPG, left JJ stent placement Post-op Diagnosis: same as pre-op Surgeon: alejandro Anesthesia: general Specimen: none Complications: none Condition: stable Fluids: 100 mL Estimated Blood Loss: none Drains: other - 6x24 JJ stent on left Implant(s) used?: Yes Ashu Monsalve M.D. Apr 29, 2017 15:12
[2017-04-29] MEDS ORDERED: Hydromorphone 0.5mg/0.5ml inj IVP PRN (15:15)
[2017-04-29] MEDS ORDERED: Ketorolac 30mg Inj IV PRN (15:15)
[2017-04-29] MEDS ORDERED: DiphenhydrAMINE 50mg/ml Inj IVP PRN (15:15)
[2017-04-29] MEDS ORDERED: Miralax 17gm pkt ORAL PRN (16:00)
[2017-04-29] MEDS ORDERED: Nitroglycerin Subl 0.4mg tab SL PRN (16:00)
[2017-04-29] MEDS ORDERED: Mylanta II UD 30ml ORAL PRN (16:00)
--- NOTE | 2017-04-29 16:13 | Immediate Post-Op Evaluation ---
Immediate Post-Op Evalulation Immediate Post-Op Evalulation Procedure: Cysto, retrograde pyelogram L uretereal stent placement Date of Evaluation: Apr 29, 2017 Time of Evaluation: 15:58 IV Fluids: 500 Blood Products: none Estimated Blood Loss: min Urinary Output: n/a Blood Pressure Systolic: 132 Blood Pressure Diastolic: 56 Pulse Rate: 72 Respiratory Rate: 20 O2 Sat by Pulse Oximetry: 99 Temperature (Fahrenheit): 97.5 Pain Score (1-10): 2 Nausea: No Vomiting: No Complications none Patient Status: reacts, patent, none Hydration Status: adequate DANYELL ALCANTARA M.D. Apr 29, 2017 16:13
[2017-04-29] MEDS ORDERED: Morphine Sulfate 2mg/ml Inj IVP PRN (17:00)
[2017-04-29] MEDS ORDERED: cefTRIAXone 1 GM in D5W 55 ML IVPB SCH (20:00)
--- NOTE | 2017-04-29 22:32 | Operative Note - Dictated ---
DATE OF OPERATION: 04/29/2017 NAME OF PRIMARY SURGEON: Ashu Monsalve M.D. PREOPERATIVE DIAGNOSES: Left ureteral stone and urinary tract infection. POSTOPERATIVE DIAGNOSES: Left ureteral stone and urinary tract infection. PROCEDURE PERFORMED: Cystoscopy with left retrograde pyelogram and left double-J stent placement. ANESTHESIA: General. EBL: Minimal. COMPLICATIONS: None. DRAINS: 6 x 24 double-J stent. SPECIMEN: None. PREOPERATIVE HISTORY: The patient is a pleasant 52-year-old female with 48 hours of nausea, vomiting, abdominal pain, specifically on the left side, and fevers. She was seen in the ER, diagnosed with CT scan showing a left distal ureteral stone likely ruptured fornix with perinephric fluid collection and perinephric stranding. Urinary tract infection was likely based on admission urinalysis. The patient was counseled on the risks and benefits of intervention. Given the presence of likely infection, I counseled the patient on just decompression of the collecting system with future elective lithotripsy. The patient agreed to this. She was made aware of the risks and benefits of the procedure. Risks including, but not limited to bleeding, infection, bladder injury, ureteral injury, and need for further surgery. She understood the risks, signed the consent, and was taken to the operating room. OPERATIVE PROCEDURE: The patient was brought into the operating room where general anesthesia was achieved easily. She was placed in the dorsal lithotomy position and all pressure points were padded. She received preop cefoxitin as IV antibiotics. The perineum was prepped and draped in sterile fashion. The 22-Turkmen cystoscope sheath was placed. The urethra was normal. On vaginal exam, there was an obvious moderate size cystocele. Bladder was entered showing mild trabeculation. Right and left ureteral orifices were in normal anatomical position. The worship pastor fluoroscopy showed possible hyperdensity at the level of the pubic symphysis, but difficult to tell. A 6-Turkmen ureteral catheter was advanced and a retrograde pyelogram was shot using brisk filling of the intravesical ureter and immediate dilated distal ureter. Glidewire was passed up into the collecting system and over this wire, a 6 x 24 double-J stent was advanced. It was secured in the lower pole of the kidney under fluoroscopy and a good a coil was seen in the bladder under direct vision. The stent was effluxing urine at the end of the case. The bladder was emptied. The patient was woken up and taken to recovery room in stable fashion. She tolerated the procedure well. I was present for the entire case. All instrument counts correct at the end of the case. PLAN: 1. The patient can go home today or tomorrow with adequate pain control. 2. The patient will followup in one to two weeks in my office for outpatient elective lithotripsy scheduling. Ashu Monsalve DR: Siva JOB#: [id number] CC:
[2017-04-30] VITALS: BP 125/78
[2017-04-30 03:39] VITALS: BP 132/76
[2017-04-30] MEDS: D5 1/2NS 1,000 ML IV SCH (05:04)
[2017-04-30 07:24] LABS: ALANINE AMINOTRANSFERASE 27 U/L (12-78); ALBUMIN/GLOBULIN RATIO 0.8 (1.0-2.7); ANION GAP 8 mmol/L (5-15); ASPARTATE AMINO TRANSFERASE 22 U/L (15-37); CARBON DIOXIDE 25 MMOL/L (21-32); CHLORIDE 105 MMOL/L (98-107); CREATININE 0.7 MG/DL (0.55-1.30); GLOMERULAR FILTRATION RATE > 60 mL/min (>60); MAGNESIUM 1.7 MG/DL (1.8-2.4); PHOSPHORUS 3.3 MG/DL (2.5-4.9); POTASSIUM 3.9 MMOL/L (3.5-5.1); SODIUM 138 MMOL/L (136-145)
[2017-04-30 07:25] LABS: BASOPHILS % (AUTO) 1.3 % (0.0-2.0); EOSINOPHILS % (AUTO) 1.9 % (0.0-3.0); MEAN CORPUSCULAR HGB CONC 33.6 G/DL (32.0-36.0); MEAN CORPUSCULAR VOLUME 95 FL (80-99); MEAN PLATELET VOLUME 8.7 FL (6.5-10.1); MONOCYTES % (AUTO) 6.9 % (1.0-10.0); NEUTROPHILS % (AUTO) 71.9 % (45.0-75.0); PLATELET COUNT 268 K/UL (150-450); RED BLOOD COUNT 3.93 M/UL (4.20-5.40); RED CELL DISTRIBUTION WIDTH 13.5 % (11.6-14.8); WHITE BLOOD COUNT 10.3 K/UL (4.8-10.8)
[2017-04-30 08:39] VITALS: BP 116/72
[2017-04-30] MEDS: Heparin 5000 units/ml inj SUBQ SCH (10:34)
--- NOTE | 2017-04-30 10:39 | Infectious Diseases Prog Note ---
Assessment/Plan Assessment/Plan Abx: Ceftriaxone 04/28- Zosyn x1 04/28 Assesment: Obstructive nephro/ureterolithiasis with L hydronephrosis s/p Cystoscopy with left retrograde pyelogram and left double-J stent placement 04/29.- no evidence of UTI as u/a normal, afebrile -CT abd/p: Moderate left hydronephrosis and obstruction secondary to a 8 mm UVJ stone. -u/a no pyuria, mild hematuria; Ucx NTD Leukocytosis- likely reactive to above- resolved Afebrile s/p appendectomy Plan: -D/C Ceftriaxone #3 as no evidence of UTI. -management of stone; uro following -f/u cx -Monitor CBC/BMP, temperatures Thank you for this consultation. Will continue to follow along with you. Discussed with RN. Subjective Allergies: Coded Allergies: No Known Allergies (Unverified , 06/27/16) Subjective afebrile leukocytosis resolved s/p cystoscopy yesterday Objective Vital Signs Last 24 Hour Vital Signs Date Time Temp Pulse Resp B/P (MAP) Pulse Ox O2 Delivery O2 Flow Rate FiO2 04/30/17 08:39 98.1 73 20 116/72 97 Room Air 04/30/17 04:00 Nasal Cannula 2.0 04/30/17 03:39 98.8 77 20 132/76 Nasal Cannula 04/30/17 00:00 98.8 76 20 125/78 100 Nasal Cannula 2.0 04/30/17 00:00 Nasal Cannula 2.0 04/29/17 20:00 Nasal Cannula 2.0 04/29/17 20:00 97.9 77 20 131/81 100 Nasal Cannula 2.0 04/29/17 16:29 97.3 68 20 118/79 100 04/29/17 16:15 98.3 63 16 151/84 99 Nasal Cannula 3.0 04/29/17 16:13 72 20 99 04/29/17 16:00 69 19 139/86 100 Nasal Cannula 3.0 04/29/17 15:50 71 15 137/91 98 Nasal Cannula 3.0 04/29/17 15:40 71 13 135/89 98 Nasal Cannula 3.0 04/29/17 15:33 83 19 137/85 98 Nasal Cannula 3.0 04/29/17 15:28 85 16 120/79 98 Simple Mask 6.0 04/29/17 15:23 97.4 81 25 123/78 98 Simple Mask 6.0 04/29/17 12:00 63 04/29/17 12:00 98.7 61 22 114/64 100 Room Air Height (Feet): 5 Height (Inches): 4.00 Weight (Pounds): 170 Objective General Appearance: WD/WN Lines, tubes and drains: peripheral HEENT: normocephalic, atraumatic Neck: non-tender, normal inspection Respiratory/Chest: chest wall non-tender, lungs clear Cardiovascular/Chest: normal rate, regularly irregular Abdomen: normal bowel sounds, soft, L flank TTP SKIn: no rashes Microbiology Date/Time Source Procedure Growth Status 04/28/17 21:45 Straight Cath Urine Culture - Preliminary NO GROWTH AFTER 24 HOURS Resulted Laboratory Tests Test 04/29/17 11:30 04/30/17 05:10 Urine HCG, Qualitative Negative White Blood Count 10.3 K/UL (4.8-10.8) Red Blood Count 3.93 M/UL (4.20-5.40) L Hemoglobin 12.6 G/DL (12.0-16.0) Hematocrit 37.4 % (37.0-47.0) Mean Corpuscular Volume 95 FL (80-99) Mean Corpuscular Hemoglobin 32.0 PG (27.0-31.0) H Mean Corpuscular Hemoglobin Concent 33.6 G/DL (32.0-36.0) Red Cell Distribution Width 13.5 % (11.6-14.8) Platelet Count 268 K/UL (150-450) Mean Platelet Volume 8.7 FL (6.5-10.1) Neutrophils (%) (Auto) 71.9 % (45.0-75.0) Lymphocytes (%) (Auto) 18.0 % (20.0-45.0) L Monocytes (%) (Auto) 6.9 % (1.0-10.0) Eosinophils (%) (Auto) 1.9 % (0.0-3.0) Basophils (%) (Auto) 1.3 % (0.0-2.0) Sodium Level 138 MMOL/L (136-145) Potassium Level 3.9 MMOL/L (3.5-5.1) Chloride Level 105 MMOL/L (98-107) Carbon Dioxide Level 25 MMOL/L (21-32) Anion Gap 8 mmol/L (5-15) Blood Urea Nitrogen 5 mg/dL (7-18) L Creatinine 0.7 MG/DL (0.55-1.30) Estimat Glomerular Filtration Rate > 60 mL/min (>60) Glucose Level 132 MG/DL (74-106) H Calcium Level 9.0 MG/DL (8.5-10.1) Phosphorus Level 3.3 MG/DL (2.5-4.9) Magnesium Level 1.7 MG/DL (1.8-2.4) L Total Bilirubin 0.4 MG/DL (0.2-1.0) Aspartate Amino Transf (AST/SGOT) 22 U/L (15-37) Alanine Aminotransferase (ALT/SGPT) 27 U/L (12-78) Alkaline Phosphatase 75 U/L (46-116) Total Protein 7.0 G/DL (6.4-8.2) Albumin 3.0 G/DL (3.4-5.0) L Globulin 4.0 g/dL Albumin/Globulin Ratio 0.8 (1.0-2.7) L Current Medications Medications (Trade) Dose Ordered Sig/Michael Route PRN Reason Start Time Stop Time Status Last Admin Dose Admin Acetaminophen (Tylenol) 650 mg Q4H PRN ORAL fever 04/29/17 16:00 05/28/17 15:59 Al Hydroxide/Mg Hydroxide (Mylanta II) 30 ml Q6H PRN ORAL dyspepsia 04/29/17 16:00 05/28/17 15:59 Ceftriaxone Sodium 1 gm/ Dextrose 55 ml @ 110 mls/hr Q24H IVPB 04/29/17 20:00 05/05/17 19:59 04/29/17 20:02 Dextrose (Dextrose 50%) STAT PRN IV Hypoglycemia 04/29/17 16:00 05/28/17 15:59 Dextrose/Sodium Chloride 1,000 ml @ 75 mls/hr [id number] IV 04/29/17 16:00 05/28/17 15:59 04/30/17 05:04 Diphenhydramine HCl (Benadryl) 25 mg Q6H PRN ORAL Itching/Pruritis 04/29/17 16:00 05/28/17 15:59 Heparin Sodium (Porcine) (Heparin 5000 units/ml) 5,000 units EVERY 12 HOURS SUBQ 04/29/17 21:00 05/28/17 20:59 04/30/17 10:34 Morphine Sulfate (Morphine Sulfate) 2 mg Q4H PRN IVP Moderate Pain Scale(4-6) 04/29/17 17:00 05/06/17 16:59 Morphine Sulfate (Morphine Sulfate) 4 mg Q2H PRN IV For Severe Pain (7-10) 04/29/17 14:00 05/06/17 13:59 Nitroglycerin (Ntg) 0.4 mg Q5M X 3 DOSES PRN SL Prn Chest Pain 04/29/17 16:00 05/28/17 15:59 Ondansetron HCl (Zofran) 4 mg Q6H PRN IVP Nausea & Vomiting 04/29/17 16:00 05/28/17 15:59 Polyethylene Glycol (Miralax) 17 gm HSPRN PRN ORAL Constipation 04/29/17 16:00 05/28/17 15:59 Temazepam (Restoril) 15 mg HSPRN PRN ORAL Insomnia 04/29/17 16:00 05/05/17 15:59 Chaparrita Wagner M.D. Apr 30, 2017 10:38
--- NOTE | 2017-04-30 10:52 | 48 Hour Post Anesthesia Eval ---
Post Anesthesia Evaluation Procedure: Cysto, retrograde pyelogram L uretereal stent placement Date of Evaluation: Apr 30, 2017 Time of Evaluation: 10:51 Blood Pressure Systolic: 118 0: 76 Pulse Rate: 72 Respiratory Rate: 22 Temperature (Fahrenheit): 97.6 O2 Sat by Pulse Oximetry: 98 Airway: patent Nausea: No Vomiting: No Pain Intensity: 2 Hydration Status: adequate Cardiopulmonary Status: stable Mental Status/LOC: patient returned to baseline Follow-up Care/Observations: n/a Post-Anesthesia Complications: none Follow-up care needed: ready to discharge DANYELL ALCANTARA M.D. Apr 30, 2017 10:52
--- NOTE | 2017-04-30 11:14 | Pulmonology Progress Note ---
Assessment/Plan Problems: (1) Urinary tract infection (2) Hydronephrosis (3) Ureteral calculus, left Assessment/Plan for cystoscopy done yesterday Iv abx stopped by ID check cultures symptomatic treatment. Subjective ROS Limited/Unobtainable: No Constitutional: Reports: no symptoms HEENT: Repors: no symptoms Respiratory: Reports: no symptoms Allergies: Coded Allergies: No Known Allergies (Unverified , 06/27/16) Objective Last 24 Hour Vital Signs Date Time Temp Pulse Resp B/P (MAP) Pulse Ox O2 Delivery O2 Flow Rate FiO2 04/30/17 10:52 72 22 98 04/30/17 08:39 98.1 73 20 116/72 97 Room Air 04/30/17 04:00 Nasal Cannula 2.0 04/30/17 03:39 98.8 77 20 132/76 Nasal Cannula 04/30/17 00:00 98.8 76 20 125/78 100 Nasal Cannula 2.0 04/30/17 00:00 Nasal Cannula 2.0 04/29/17 20:00 Nasal Cannula 2.0 04/29/17 20:00 97.9 77 20 131/81 100 Nasal Cannula 2.0 04/29/17 16:29 97.3 68 20 118/79 100 04/29/17 16:15 98.3 63 16 151/84 99 Nasal Cannula 3.0 04/29/17 16:13 72 20 99 04/29/17 16:00 69 19 139/86 100 Nasal Cannula 3.0 04/29/17 15:50 71 15 137/91 98 Nasal Cannula 3.0 04/29/17 15:40 71 13 135/89 98 Nasal Cannula 3.0 04/29/17 15:33 83 19 137/85 98 Nasal Cannula 3.0 04/29/17 15:28 85 16 120/79 98 Simple Mask 6.0 04/29/17 15:23 97.4 81 25 123/78 98 Simple Mask 6.0 04/29/17 12:00 63 04/29/17 12:00 98.7 61 22 114/64 100 Room Air Intake and Output 04/30/17 05/01/17 19:00 07:00 Intake Total 705 ml Output Total 150 ml Balance 555 ml Intake Oral 480 ml IV Total 225 ml Output Urine Total 150 ml # Voids 1 # Bowel Movements 1 Objective s/p stent Microbiology Date/Time Source Procedure Growth Status 04/28/17 21:45 Straight Cath Urine Culture - Preliminary NO GROWTH AFTER 24 HOURS Resulted Laboratory Tests 04/29/17 11:30: Urine HCG, Qualitative Negative 04/30/17 05:10: White Blood Count 10.3, Red Blood Count 3.93L, Hemoglobin 12.6, Hematocrit 37.4 , Mean Corpuscular Volume 95, Mean Corpuscular Hemoglobin 32.0H, Mean Corpuscular Hemoglobin Concent 33.6, Red Cell Distribution Width 13.5, Platelet Count 268, Mean Platelet Volume 8.7, Neutrophils (%) (Auto) 71.9, Lymphocytes (% ) (Auto) 18.0L, Monocytes (%) (Auto) 6.9, Eosinophils (%) (Auto) 1.9, Basophils (%) (Auto) 1.3, Sodium Level 138, Potassium Level 3.9, Chloride Level 105, Carbon Dioxide Level 25, Anion Gap 8, Blood Urea Nitrogen 5L, Creatinine 0.7, Estimat Glomerular Filtration Rate > 60, Glucose Level 132H, Calcium Level 9.0, Phosphorus Level 3.3, Magnesium Level 1.7L, Total Bilirubin 0.4, Aspartate Amino Transf (AST/SGOT) 22, Alanine Aminotransferase (ALT/SGPT) 27, Alkaline Phosphatase 75, Total Protein 7.0, Albumin 3.0L, Globulin 4.0, Albumin/Globulin Ratio 0.8L Current Medications Medications (Trade) Dose Ordered Sig/Michael Route PRN Reason Start Time Stop Time Status Last Admin Dose Admin Acetaminophen (Tylenol) 650 mg Q4H PRN ORAL fever 04/29/17 16:00 05/28/17 15:59 Al Hydroxide/Mg Hydroxide (Mylanta II) 30 ml Q6H PRN ORAL dyspepsia 04/29/17 16:00 05/28/17 15:59 Dextrose (Dextrose 50%) STAT PRN IV Hypoglycemia 04/29/17 16:00 05/28/17 15:59 Dextrose/Sodium Chloride 1,000 ml @ 75 mls/hr [id number] IV 04/29/17 16:00 05/28/17 15:59 04/30/17 05:04 Diphenhydramine HCl (Benadryl) 25 mg Q6H PRN ORAL Itching/Pruritis 04/29/17 16:00 05/28/17 15:59 Heparin Sodium (Porcine) (Heparin 5000 units/ml) 5,000 units EVERY 12 HOURS SUBQ 04/29/17 21:00 05/28/17 20:59 04/30/17 10:34 Morphine Sulfate (Morphine Sulfate) 2 mg Q4H PRN IVP Moderate Pain Scale(4-6) 04/29/17 17:00 05/06/17 16:59 Morphine Sulfate (Morphine Sulfate) 4 mg Q2H PRN IV For Severe Pain (7-10) 04/29/17 14:00 05/06/17 13:59 Nitroglycerin (Ntg) 0.4 mg Q5M X 3 DOSES PRN SL Prn Chest Pain 04/29/17 16:00 05/28/17 15:59 Ondansetron HCl (Zofran) 4 mg Q6H PRN IVP Nausea & Vomiting 04/29/17 16:00 05/28/17 15:59 Polyethylene Glycol (Miralax) 17 gm HSPRN PRN ORAL Constipation 04/29/17 16:00 05/28/17 15:59 Temazepam (Restoril) 15 mg HSPRN PRN ORAL Insomnia 04/29/17 16:00 05/05/17 15:59 MARIS SALAZAR Apr 30, 2017 11:14
[2017-04-30 11:50] VITALS: BP 124/78
[2017-04-30] MEDS ORDERED: D5 1/2NS 1000ml IV ONE ×2 (14:59)
[2017-04-30] MEDS ORDERED: Tubing IV Secondary IV ONE ×3 (14:59)
--- NOTE | 2017-05-05 15:34 | Discharge Summary ---
Discharge Summary Hospital Course Date of Admission Apr 28, 2017 at 13:45 Date of Discharge Apr 30, 2017 at 15:00 Admitting Diagnosis ABD PAIN, DEHYDRATION HPI Ellen Estes is a 52 year old female who was admitted on Apr 28, 2017 at 13:45 for Abdominal Pain Hospital Course [id number] Discharge Discharge Disposition Patient was discharged to Home (01) Discharge Diagnoses: Lorna Mcleod NP May 05, 2017 15:34
--- NOTE | 2017-05-05 22:45 | Discharge Summary 2 SIG ---
DATE OF ADMISSION: 04/28/2017 DATE OF DISCHARGE: 04/30/2017 CONSULTANTS: 1. Ashu Monsalve M.D. 2. Chaparrita Wagner M.D BRIEF HOSPITAL COURSE: The patient is a 52-year-old female who presented to the ED complaining of abdominal pain of gradual onset, reported increased pain on the left side of the abdomen with associated nausea and vomiting. She had a prior history of appendectomy. Denied fever. Denied diarrhea or bloody stools. On evaluation at ED, she had leukocytosis, WBC was 15.8. Hemoglobin was stable. LFTs were normal. Lipase was 79. She had a CT scan of the abdomen and pelvis that showed moderate left hydronephrosis/hydroureter with perinephric and periureteral stranding secondary to 8 mm stone in the left UVJ. She was admitted to medical floor and was given IV hydration and pain management. She was placed on NPO and was started on IV ceftriaxone by Infectious Diseases specialist. She was seen by Dr. Monsalve, urologist. The patient had not passed stone. She underwent cystoscopy with left retrograde pyelogram and left double-J stent placement. Postoperatively antibiotics were discontinued by Infectious Diseases specialist. Urine culture did not isolate any growth. She was given symptomatic control. Diet was advanced. She was advised to follow up with urologist. FINAL DIAGNOSES: 1. Acute hydronephrosis secondary to left ureteral calculus. 2. Urinary tract infection. 3. Status post cystoscopy with left retrograde pyelogram and left double-J stent placement. DISCHARGE DISPOSITION: The patient was discharged home. FOLLOWUP: Follow up with Urology and PMD in a week. Barby Jang M.D. I have been assigned to dictate discharge summary on this account and I was not involved in the patient's management. Lorna Mcleod N.P. DR: GAURAV JOB#: [id number] CC: LIBIA
== END 2017-04-30 15:00 | disposition home or self-care (01) | DRG 465 ==
LOC: EMR 10:00 → EDBEDREQ 11:25 → 2W 13:45 → EDBEDREQ 14:23 → 4E 04-29 13:54
PROC: BT1FZZZ Fluoroscopy of Left Kidney, Ureter and Bladder (ICD-10-PCS; 2017-04-29)
PROC: 0T778DZ Dilation of Left Ureter with Intraluminal Device, Via Natural or Artificial Opening Endoscopic (ICD-10-PCS; principal; 2017-04-29 14:00)
DX: N13.2 Hydronephrosis with renal and ureteral calculous obstruction (principal); N39.0 Urinary tract infection, site not specified
CPT/HCPCS: 36415; 74177; 74420; 76000; 80053; 81001; 81003; 81025; 82150; 83690; 83735; 84100; 84484; 85007; 85025; 85610; 85730; 87086; 94003; 94150; 99285; J2250; J2405